=== PATIENT | male | born 1995 | race African-American/Black ===

== ENCOUNTER 2020-03-03 00:15 | Emergency (ER) | payer MEDICAID, SELFPAY ==
[2020-03-03 00:24] VITALS: BP 147/88; PULSE 74; RESP 17; O2SAT 96; BMI 22.4
[2020-03-03 01:48] LABS: Hemoglobin 14.2 g/dl (14.0-18.0); PLT CLUMP 1; WBC ABN SCTR FOR CBC 1
[2020-03-03 01:50] LABS: Hematocrit 40.5 % (42-52); Mean Corpuscular HGB Conc 35.1 g/dl (31.0-36.0); Mean Corpuscular Hemoglobin 25.8 pg (27.0-33.0); Mean Corpuscular Volume 73.6 fL (80-98); Platelet Count 277 X10*3/uL (160-400)
--- NOTE | 2020-03-03 02:05 | ED_ITS ---
HPI - Altered Mental Status General Chief Complaint: Altered Mental Status Stated Complaint: Psychiatric Episode Time Seen by Provider: 03/03/20 00:56 Source: EMS Limitations: altered mental status History of Present Illness HPI narrative: 24-year-old male brought in for altered mental status. Unable to obtain full history from patient secondary to altered mental status. History as per EMS stating that he was at home with his family and was acting strange. Locked himself in a room 911 was called. Patient with a history marijuana use however no drug abuse no other history obtainable at this time Related Data Allergies Allergy/AdvReac Type Severity Reaction Status Date / Time Unable to Assess Allergy Verified 03/03/20 01:01 Review of Systems Review of Systems: Yes Unobtainable due to mental status PMFSH Past Medical History Medical History Patient denies significant medical history Family History Family History (Updated 03/03/20 @ 02:07 by Len Cowart DO) Other Family history non-contributory Social History Social History Use of substances other than those prescribed or required for medical reasons: Yes Substance Use Type: Marijuana Advance Directives: No Advance Directives Information Provided: No Physical Exam Vital Signs: Vital Signs: Last Vital Signs Pulse 74 03/03/20 00:24 Resp 17 03/03/20 00:24 BP 147/88 H 03/03/20 00:24 Pulse Ox 96 03/03/20 00:24 Body Mass Index 22.4 Vital signs reviewed. Pulse ox 96% on room air interpreted by me as normal Appearance: Alert. Disoriented. No acute distress. Following simple commands Eyes: Pupils equal, round and reactive to light. ENT: Pharynx normal. Neck: Normal inspection. Neck supple. No lymph nodes noted. No crepitus CVS: Normal heart rate and rhythm. Pulses normal. Normal S1 and S2 Respiratory: No respiratory distress. Breath sounds normal. No Wheezing. No rales Abdomen: Soft and nontender. No rigidity. No distention. good BS x4 Skin: Skin warm and dry. Normal skin color. Normal skin turgor. Extremities: No lower extremity edema. Neurovascular intact to all extremities. No Lacerations. No Rash Neuro: Awake. No motor deficit. No sensory deficit. Moving all extermities. Slow mumbled speech Course Course Course Narrative: Differential diagnosis includes drug abuse. Encephalitis. Renal failure Reevaluation(s) Reevaluation #1: Patient more alert. Asking about his girlfriend. Admitted to using marijuana tonight Time: 02:08 Reevaluation #2: Further history obtained from girlfriend who states was fine at dinner last night however after dinner is when the patient started to act abnormal. Acted normal as is not finishing his sentences as well as staring off into space base however prior to dinner for the past several days the patient has not had any fevers or chills or exhibited any flu-like symptoms Time: 02:20 Time: 03:04 Additional Reevaluation(s): Patient now on phone talking to his friends saying he feels much improved. Patient alert and oriented x4 MDM - Altered Mental Status Lab Data Result diagrams: 03/03/20 01:40 03/03/20 01:40 Labs: Lab Results 03/03/20 03/03/20 03/03/20 Range/Units 01:40 01:40 01:40 WBC 14.8 H (4.8-10.8) X10*3/uL RBC 5.50 (4.60-5.80) X10*6/uL Hgb 14.2 (14.0-18.0) g/dl Hct 40.5 L (42-52) % MCV 73.6 L (80-98) fL MCH 25.8 L (27.0-33.0) pg MCHC 35.1 (31.0-36.0) g/dl RDW 13.0 (11.0-16.0) % Plt Count 277 (160-400) X10*3/uL MPV 10.0 (9.4-12.4) fL Immature Gran % (Auto) Cancelled Neut % (Auto) Cancelled Lymph % (Auto) Cancelled [place] % (Auto) Cancelled Eos % (Auto) Cancelled Baso % (Auto) Cancelled Lymph # (Auto) Cancelled [place] # (Auto) Cancelled Eos # (Auto) Cancelled Baso # (Auto) Cancelled Abs Immat Gran (auto) Cancelled Absolute Neuts (auto) Cancelled Absolute Nucleated RBC 0.000 (0.0-0.012) X10*3/uL Nucleated RBC % (auto) 0.0 (0.0-0.2) /100WBC Neutrophils % (Manual) 80 H (45-73) % Band Neutrophils % 0 L (3-5) % Lymphocytes % (Manual) 10 L (20-40) % Monocytes % (Manual) 9 (2-11) % Basophils % (Manual) 1 (0-1) % Abs Neuts (Manual) 11.8 H (2.2-7.9) X10*3/uL Lymphocytes # (Manual) 1.5 (0.6-4.8) X10*3/uL Monocytes # (Manual) 1.3 H (0.0-1.2) X10*3/uL Basophils # (Manual) 0.1 (0.0-0.3) X10*3/uL Toxic Vacuolation PRESENT Platelet Estimate NORMAL (NORMAL) Plt Morphology Comment NORMAL RBC Morphology NOTED Microcytosis 1+ Target Cells 1+ Sodium 138 (135-145) mmol/L Potassium 4.0 (3.3-5.1) mmol/l Chloride 104 (96-108) mmol/L Carbon Dioxide 22 (22-29) mmol/L Anion Gap 16 (12-20) BUN 10 (9-16) mg/dL Creatinine 1.00 (0.5-1.4) mg/dL Estim Creat Clear Calc 100.3 Estimated GFR > 60 Random Glucose 119 H (60-115) mg/dL Calcium 9.9 (8.4-10.2) mg/dL Total Bilirubin (0.0-1.0) mg/dL Direct Bilirubin (0.0-0.5) mg/dL AST (5-37) U/L ALT (0-40) U/L Alkaline Phosphatase (39-117) U/L Total Protein (6.5-8.0) g/dL Albumin (3.5-5.0) g/dL Salicylates < 5.0 L (15-30) mg/dL Urine Opiates Screen (Not Detect) Acetaminophen 1 (<30) mcg/mL Ur Barbiturates Screen (Not Detect) Ur Phencyclidine Scrn (Not Detect) Ur Amphetamines Screen (Not Detect) U Benzodiazepines Scrn (Not Detect) Urine Cocaine Screen (Not Detect) U Marijuana (THC) Screen (Not Detect) Ethyl Alcohol < 10 mg/dL 03/03/20 03/03/20 Range/Units 01:40 02:27 WBC (4.8-10.8) X10*3/uL RBC (4.60-5.80) X10*6/uL Hgb (14.0-18.0) g/dl Hct (42-52) % MCV (80-98) fL MCH (27.0-33.0) pg MCHC (31.0-36.0) g/dl RDW (11.0-16.0) % Plt Count (160-400) X10*3/uL MPV (9.4-12.4) fL Immature Gran % (Auto) Neut % (Auto) Lymph % (Auto) [place] % (Auto) Eos % (Auto) Baso % (Auto) Lymph # (Auto) [place] # (Auto) Eos # (Auto) Baso # (Auto) Abs Immat Gran (auto) Absolute Neuts (auto) Absolute Nucleated RBC (0.0-0.012) X10*3/uL Nucleated RBC % (auto) (0.0-0.2) /100WBC Neutrophils % (Manual) (45-73) % Band Neutrophils % (3-5) % Lymphocytes % (Manual) (20-40) % Monocytes % (Manual) (2-11) % Basophils % (Manual) (0-1) % Abs Neuts (Manual) (2.2-7.9) X10*3/uL Lymphocytes # (Manual) (0.6-4.8) X10*3/uL Monocytes # (Manual) (0.0-1.2) X10*3/uL Basophils # (Manual) (0.0-0.3) X10*3/uL Toxic Vacuolation Platelet Estimate (NORMAL) Plt Morphology Comment RBC Morphology Microcytosis Target Cells Sodium (135-145) mmol/L Potassium (3.3-5.1) mmol/l Chloride (96-108) mmol/L Carbon Dioxide (22-29) mmol/L Anion Gap (12-20) BUN (9-16) mg/dL Creatinine (0.5-1.4) mg/dL Estim Creat Clear Calc Estimated GFR Random Glucose (60-115) mg/dL Calcium (8.4-10.2) mg/dL Total Bilirubin 1.3 H (0.0-1.0) mg/dL Direct Bilirubin 0.5 (0.0-0.5) mg/dL AST 24 (5-37) U/L ALT 24 (0-40) U/L Alkaline Phosphatase 67 (39-117) U/L Total Protein 8.0 (6.5-8.0) g/dL Albumin 4.9 (3.5-5.0) g/dL Salicylates (15-30) mg/dL Urine Opiates Screen Not Detected (Not Detect) Acetaminophen (<30) mcg/mL Ur Barbiturates Screen Not Detected (Not Detect) Ur Phencyclidine Scrn Not Detected (Not Detect) Ur Amphetamines Screen Not Detected (Not Detect) U Benzodiazepines Scrn Not Detected (Not Detect) Urine Cocaine Screen Not Detected (Not Detect) U Marijuana (THC) Screen POSITIVE H (Not Detect) Ethyl Alcohol mg/dL Discharge Plan Discharge Clinical Impression: Substance abuse Altered mental status Qualifiers: Altered mental status type: disorientation Qualified Code(s): R41.0 - Disorientation, unspecified Patient Disposition: Home, Self-Care Instructions: Cannabis Abuse (ED) Additional Instructions: Thank you for visiting the emergency department today. If your symptoms worsen or do not resolve completely please return to the emergency department immediately or call 911. if he have any questions please call your primary care physician Referrals: [facility] [Provider Group] - 2 days
[2020-03-03 02:12] LABS: White Blood Count 14.8 X10*3/uL (4.8-10.8)
[2020-03-03 02:13] LABS: Ethanol < 10 mg/dL
[2020-03-03 02:15] LABS: Acetaminophen LAB 1 mcg/mL (<30); Alanine Aminotransferase 24 U/L (0-40); Albumin Level 4.9 g/dL (3.5-5.0); Alkaline Phosphatase 67 U/L (39-117); Anion Gap 16 (12-20); Aspartate Amino Transferase 24 U/L (5-37); Bilirubin Direct 0.5 mg/dL (0.0-0.5); Bilirubin Total 1.3 mg/dL (0.0-1.0); Blood Urea Nitrogen 10 mg/dL (9-16); Calcium 9.9 mg/dL (8.4-10.2); Carbon Dioxide 22 mmol/L (22-29); Chloride 104 mmol/L (96-108); Creatinine Clr Calc Pharmacy 100.3; Estimated Glomerular Filt Rate > 60; Glucose Random 119 mg/dL (60-115); Salicylate < 5.0 mg/dL (15-30); Sodium 138 mmol/L (135-145)
[2020-03-03 02:32] LABS: Basophils Abs Manual 0.1 X10*3/uL (0.0-0.3); Basophils Percent Manual 1 % (0-1); Lymphocytes Absolute Manual 1.5 X10*3/uL (0.6-4.8); Lymphocytes Percent Manual 10 % (20-40); Monocytes Absolute Manual 1.3 X10*3/uL (0.0-1.2); Monocytes Percent Manual 9 % (2-11); Neutrophils Percent Manual 80 % (45-73)
[2020-03-03 02:33] LABS: Microcytosis 1+; Platelet Estimate NORMAL (NORMAL); Platelet Morphology Comment NORMAL; RBC Morphology NOTED; Target Cells 1+; Toxic Vacuolation PRESENT
[2020-03-03 02:36] LABS: Band Neutrophils Percent 0 % (3-5); Neutrophils Absolute Manual 11.8 X10*3/uL (2.2-7.9)
--- NOTE | 2020-03-03 02:36 | PC.NURSE ---
venus Gordon [phone].
[2020-03-03 02:59] LABS: Amphetamine Screen Urine Not Detected (Not Detect); Barbiturates, Urine Not Detected (Not Detect); Benzodiazepines Screen Urine Not Detected (Not Detect); Cannabinoid Screen Urine POSITIVE (Not Detect); Cocaine Screen Urine Not Detected (Not Detect); Opiate Screen Urine Not Detected (Not Detect); Phencyclidine Screen Urine Not Detected (Not Detect)
== END 2020-03-03 05:53 | disposition home or self-care (01) ==
PROVIDERS: Emergency Provider Emergency Medicine
DX: R41.82 Altered mental status, unspecified (principal); F12.10 Cannabis abuse, uncomplicated
CPT/HCPCS: 36415; 80048; 80076; 80307; 80320; 85007; 85025; 85027; 99283; 99284; G0480

== ENCOUNTER 2020-03-03 06:56 | Emergency (ER) | payer MEDICAID, SELFPAY ==
[2020-03-03] VITALS (9 sets, daily range): BP systolic 108–136; BP diastolic 50–76; PULSE 55–81; RESP 14–20; TEMP 36.6–36.7; O2SAT 98–100; BMI 20.6
[2020-03-03] MEDS: Haloperidol Lactate 5 MG/ML VIAL IM (07:14)
--- NOTE | 2020-03-03 07:25 | PC.NURSE ---
pt returning to er following dc roughly 1 hr ago. per ems, pt has had increase in hallucinations following reported marijuana use, ?pcp. pt repeating short phrases and is not answering questions from this rn. pt is not combative, but unable to follow basic direction. provider at bedside for primary eval, pt to be ordered behavioral and medication restraint. 1:[address] for safety[address] see restraint flow sheet for correlating documentation.
--- NOTE | 2020-03-03 08:15 | PC.NURSE ---
pt asking to be removed from physical restraints, agreeable to rest in stretcher, appears calm and cooeprative. pt expresses he thinks he may have smoked pcp and that it was not good for him . pt placed on tele; hr in 60s appears normal sinus. basic lab work ordered at this time.
--- NOTE | 2020-03-03 08:34 | PC.NURSE ---
this rn speaking to pt mom w pt leo. pt mother concerned pt did not take drugs and is having psychological break . pt mother sts that she does not believe the pts girlfriend and family would lace weed and that the pt is not on drugs. pt mother also sts that more needs to be done because my son is gonna be a danger if he comes home . pt mother does not offer further context to why pt is a self-danger risk apart from incident prior to arrival. pt expressing he is pretty sure the weed he smoked was laced, reports regularyly smoking weed and this doesnt happen . pt cooperative w blood draw.
[2020-03-03 08:52] LABS: Basophils Percent Auto 0.3 % (0-2); Eosinophils Percent Auto 0.1 % (0-4); Hematocrit 40.3 % (42-52); Hemoglobin 14.1 g/dl (14.0-18.0); Imm Gran Abs Auto 0.04 X10*3/uL (0.00-0.03); Imm Gran Pct Auto 0.3 % (0.0-0.4); Lymphocytes Percent Auto 6.3 % (20-40); MANUAL DIFF FLAG NO; Mean Corpuscular Hemoglobin 25.9 pg (27.0-33.0); Mean Corpuscular Volume 73.9 fL (80-98); Mean Platelet Volume 9.6 fL (9.4-12.4); Monocytes Absolute Auto 1.3 X10*3/uL (0.1-1.2); Neutrophils Absolute Auto 13.5 X10*3/uL (2.0-8.3); Platelet Count 276 X10*3/uL (160-400); Red Blood Count 5.45 X10*6/uL (4.60-5.80); White Blood Count 15.8 X10*3/uL (4.8-10.8)
[2020-03-03 09:13] LABS: Ethanol < 10 mg/dL
[2020-03-03 09:17] LABS: Alanine Aminotransferase 26 U/L (0-40); Albumin Level 4.9 g/dL (3.5-5.0); Alkaline Phosphatase 66 U/L (39-117); Anion Gap 15 (12-20); Aspartate Amino Transferase 35 U/L (5-37); Bilirubin Total 1.4 mg/dL (0.0-1.0); Blood Urea Nitrogen 10 mg/dL (9-16); Calcium 9.9 mg/dL (8.4-10.2); Carbon Dioxide 24 mmol/L (22-29); Chloride 106 mmol/L (96-108); Creatinine Clr Calc Pharmacy 123.3; Estimated Glomerular Filt Rate > 60; Glucose Random 90 mg/dL (60-115); Potassium 4.1 mmol/l (3.3-5.1); Sodium 141 mmol/L (135-145)
--- NOTE | 2020-03-03 09:36 | ED_ITS ---
HPI - Psych General Chief Complaint: Psychiatric Symptoms Stated Complaint: SUBSTANCE USE, AMS Time Seen by Provider: 03/03/20 07:11 History of Present Illness HPI Narrative: 24-year-old male who was brought to the emergency department by ambulance and accompanied by police officers for evaluation of erratic behavior. The patient was seen earlier today in the emergency department around 2:00 a.m. for complaint of erratic behavior after smoking marijuana. The patient's initial emergency evaluation was unremarkable with normal blood work. The patient was observed in the emergency department and appeared to be back to his baseline was then discharged home. It is unclear what happened when the patient got home. Paramedics reported that he smoked marijuana again. The patient be lieved that the marijuana that he smoked had been ?laced with PCP ?. The patient stated that either his mother or his girlfriend laced his marijuana. Paramedics reported that the patient was very agitated at the scene and needed to be restrained by the paramedics and the police in order to be transported to the emergency department. I saw the patient immediately on presentation, the patient was in handcuffs and was very agitated. He was not answering questions appropriately but he did state that he smoked marijuana laced with PCP. The patient was taken out of handcuffs and placed in 4 point restraints in order to protect him from injuring himself. He was also chemically restrained with Haldol 5 mg IM since he did appear to be agitated. The nursing staff did speak to the patient's mother and she states that no one place the patient's drugs and that this is very unusual behavior for this patient. Related Data Allergies Allergy/AdvReac Type Severity Reaction Status Date / Time Unable to Assess Allergy Verified 03/03/20 01:01 Review of Systems Review of Systems: Yes Unobtainable due to mental condition (Altered mental status) Neurologic: Reports confusion Psychiatric: Psychiatric: Reports confusion PMFSH Past Medical History Medical History Patient denies significant medical history Family History Family History Other Family history non-contributory Social History Social History Alcohol intake: unknown Smoking Status: Unknown if ever smoked Use of substances other than those prescribed or required for medical reasons: Yes Substance Use Type: Hallucinogens Last Used Substance: Just Prior to Admission Advance Directives: No Advance Directives Information Provided: No Physical Exam Vital Signs: Vital Signs: Last Vital Signs Temp 97.9 F 03/03/20 07:12 Pulse 62 03/03/20 08:14 Resp 14 03/03/20 08:14 BP 121/60 03/03/20 08:14 Pulse Ox 98 03/03/20 07:59 Body Mass Index 20.6 Const: General: confusion and other (Agitated, patient is in handcuffs, not answer questions appropriately) Orientation/consciousness: oriented to person and confusion HENMT: Head: Yes normal to inspection and Yes normocephalic Ears: hearing grossly normal bilaterally General nose exam: Normal external nose present Face and sinus: Yes normal facial exam Mouth: Normal oral and palatal mucosa present Throat: Yes posterior oropharynx normal Eyes: General: appearance normal, both eyes and all related structures Sclerae: sclerae normal Corneas: corneas normal Pupils: Equal, round and reactive pupils present Neck: Neck: Yes normal visual inspection and Yes supple Chest: Chest palpation & inspection: normal inspection of the chest Resp: Effort & Inspection: normal respiratory effort Auscultation: clear to auscultation bilaterally Cardio: Rate: regular rate Rhythm: regular rhythm Heart sounds: S1 normal heart sound present, S2 normal heart sound present and Murmur heart sound present GI: Inspection: Yes normal to inspection and No distended Palpation (GI): Soft to palpation, nontender, no guarding and No hepatosplenomegaly present Auscultation: normal bowel sounds Skin: General skin exam: no rashes or lesions noted Neuro: General: oriented to person, confusion and other (Agitated) Cranial nerves: Yes Equal, round and reactive pupils present Cognition (Neuro): abnormal cognition Extrem: General: Yes normal to inspection, Yes full ROM and Yes capillary refill normal Psych: Appearance: well kempt Speech and movement: Psychomotor agitation in speech present Course Course Course Narrative: 24-year-old male presents to the emergency department by ambulance excluded by please for altered mental status, confusion and agitation. The patient was evaluated earlier in the emergency department around 2:00 a.m. with similar symptoms and was discharged home after improvement. There is some question of whether these symptoms per precipitated by smoking marijuana or using other drugs. Patient's initial drug screen is positive for marijuana only. On presentation to the emergency department patient was confused and agitated therefore he was placed in 4 point restraints in order to prevent him from hurting himself and he was also given the chemical restraint Haldol 5 mg IM. The patient became cooperative and we were able to take him out of restraints. He is also now sleeping most likely secondary to IM Haldol patient's laboratory evaluation did reveal an elevated white blood cell count but I suspect this is more secondary to agitation is postop infection. He did have an elevated CPK of 1289 from cyclic secondary to his agitation. I did order normal saline IV x2 L to treat this elevated CPK. Patient's kidney function is normal. I did order a CT scan of patient's brain to rule out brain pathology but I suspect that this is more likely secondary to drug use or secondary to and undiagnosed psychiatric condition. I will obtain a N psychiatric consult. I did attempt to contact family however the number that I called went to voicemail and I do not have any other numbers for family members at this time. 4:14 p.m.: The CT scan of the patient's brain did not reveal any acute abnormalities to explain the patient's symptoms. The patient is awake and lacks insight as to why he is here emergency department. She denies being suicidal homicidal. At this time, we are still waiting for a BHN and evaluation. The patient has been cooperative and did eat food without any difficulty. The patient's care will be turned over to my colleague Dr. Erica Castillo pending disposition after psychiatric evaluation. MDM - Psych Restraints Face to Face Assessment: Face to Face Assessment: Current Situation: After assessment of the patient, a review of the pertinent medical record and a discussion with nursing staff, I feel the patient requires a restrain intervention. Reaction To: [] Medical Condition: [] Behavioral State: [] Continued Need: [] Lab Data Result diagrams: 03/03/20 08:44 03/03/20 08:44 Labs: Lab Results 03/03/20 03/03/20 03/03/20 Range/Units 08:44 08:44 08:44 WBC 15.8 H (4.8-10.8) X10*3/uL RBC 5.45 (4.60-5.80) X10*6/uL Hgb 14.1 (14.0-18.0) g/dl Hct 40.3 L (42-52) % MCV 73.9 L (80-98) fL MCH 25.9 L (27.0-33.0) pg MCHC 35.0 (31.0-36.0) g/dl RDW 13.0 (11.0-16.0) % Plt Count 276 (160-400) X10*3/uL MPV 9.6 (9.4-12.4) fL Immature Gran % (Auto) 0.3 (0.0-0.4) % Neut % (Auto) 85.0 H (45-73) % Lymph % (Auto) 6.3 L (20-40) % [place] % (Auto) 8.0 (2-11) % Eos % (Auto) 0.1 (0-4) % Baso % (Auto) 0.3 (0-2) % Lymph # (Auto) 1.0 L (1.2-4.9) X10*3/uL [place] # (Auto) 1.3 H (0.1-1.2) X10*3/uL Eos # (Auto) 0.0 (0.0-0.4) X10*3/uL Baso # (Auto) 0.0 (0.0-0.2) X10*3/uL Abs Immat Gran (auto) 0.04 H (0.00-0.03) X10*3/uL Absolute Neuts (auto) 13.5 H (2.0-8.3) X10*3/uL Absolute Nucleated RBC 0.000 (0.0-0.012) X10*3/uL Nucleated RBC % (auto) 0.0 (0.0-0.2) /100WBC Sodium 141 (135-145) mmol/L Potassium 4.1 (3.3-5.1) mmol/l Chloride 106 (96-108) mmol/L Carbon Dioxide 24 (22-29) mmol/L Anion Gap 15 (12-20) BUN 10 (9-16) mg/dL Creatinine 0.89 (0.5-1.4) mg/dL Estim Creat Clear Calc 123.3 Estimated GFR > 60 Random Glucose 90 (60-115) mg/dL Calcium 9.9 (8.4-10.2) mg/dL Total Bilirubin 1.4 H (0.0-1.0) mg/dL AST 35 D (5-37) U/L ALT 26 (0-40) U/L Alkaline Phosphatase 66 (39-117) U/L Total Creatine Kinase 1289 H (38-174) U/L Total Protein 8.0 (6.5-8.0) g/dL Albumin 4.9 (3.5-5.0) g/dL Ethyl Alcohol < 10 mg/dL
[2020-03-03] MEDS: 0.9 % Sodium Chloride 1,000 ML 999 ML IVCONT ×2 (09:37)
--- NOTE | 2020-03-03 09:41 | CT_ITS ---
EXAMINATION: CT HEAD WITHOUT CONTRAST CLINICAL INFORMATION: Mental status change COMPARISON: None TECHNIQUE: Contiguous axial imaging was performed from the skull base to vertex without intravenous administration of contrast. This CT examination was performed using dose optimization techniques as appropriate, variously including the following: *Automated exposure control *Adjustment of mA and/or kV according to patient size (this includes techniques or standardized protocols for targeted exams where dose is matched to indication/reason for exam; i.e. extremities or head) *Use of iterative reconstruction technique DLP: 697 mGy-cm FINDINGS: There is no evidence of acute intracranial hemorrhage or territorial infarction. No abnormal mass effect or midline shift is seen. [place] to white matter differentiation is well preserved. No extra-axial fluid collections are identified. The ventricles are normal in size. There is no abnormal attenuation within the brain parenchyma. The osseous structures and soft tissues are normal. The mastoid air cells and visualized portions of the paranasal sinuses are well aerated. There is prominent soft tissue seen in the posterior naso-oropharynx region. CT/CT head/brain wo con IMPRESSION: Prominent soft tissue seen in the posterior naso-oropharynx. Otherwise unremarkable exam.
--- NOTE | 2020-03-03 12:05 | PC.NURSE ---
[facility] called, confirmed they have recieved pt referral.
--- NOTE | 2020-03-03 12:39 | PC.NURSE ---
pt resting in stretcher, arousable to tactile stimuli, rr even/unlabored.
--- NOTE | 2020-03-03 16:23 | MHC.CARE ---
Addendum entered by Ludivina Hatfield [facility] 03/03/20 23:11: CARE Team was misinformed by [facility], who confused this patient with another pt. Pt has not yet been seen by [facility] and CARE Team is told that pt will be seen by [facility] at 10:30PM. CARE Team calls [facility] at 11:11PM and [facility] reports that they have assigned this case to a clinician and they will be here to conduct assessment by midnight. Original Note: CARE Team reaches out to [facility] evonne and speaks with Adalberto. Pt has been seen by [facility] with disposition for inpatient level of care.
[2020-03-04] VITALS (10 sets, daily range): BP systolic 116–149; BP diastolic 58–78; PULSE 55–84; RESP 16–20; TEMP 36.4–36.9; O2SAT 97–100
--- NOTE | 2020-03-04 02:36 | PC.NURSE ---
PT CONTINUES TO WAIT FOR BHN, CONFUSION OVER WRONG ASSESSMENT BEING PUT IN PTS CHART. PREVIOUS RN REPORTED PT WAS ALREADY SEEN AND BEDSEARCH. PT WAS NOT SEEN. BHN 1ST ARRIVAL TIME WAS 2230, THEY DID NOT ARRIVE. 2ND TIME WAS 0000, 0030, FINALLY ONSITE @0130, BUT CONFUSION CONTINUED WHETHER PT NEEDED TO BE SEEN SO PEST CONTROL SUPERVISOR SAW ANOTHER PATIENT FIRST. PT CONTINUES TO WAIT TO BE SEEN. PT REMAINS A/O X 3 SPEAKS IN FULL CLEAR SENTENCES, PT HAS REMAINED IN BEHAVIORAL CONTROL THROUGHOUT THE NIGHT
[2020-03-04] MEDS: LORazepam 1 MG TABLET PO ×4 (03:44→21:22)
--- NOTE | 2020-03-04 07:39 | PC.NURSE ---
Report received from SHRUTHI Cruz. Pt resting, resp unlabored.
--- NOTE | 2020-03-04 07:52 | PC.NURSE ---
Pt's mother called, requesting information re: pt. Mother informed that pt is asleep, abd no permission has been received to speak w/ mother. Mother angry, demanding to pick son up, stating that previous female nurse did speak with her. Mother requesting to speak w/ supervisor [employer]. Nilson pradhan notified, call transferred to mother.
[2020-03-04 09:45] LABS: Hematocrit 41.3 % (42-52); Mean Corpuscular Volume 74.4 fL (80-98); Red Blood Count 5.55 X10*6/uL (4.60-5.80)
[2020-03-04 09:49] LABS: Hemoglobin 14.3 g/dl (14.0-18.0); Mean Corpuscular HGB Conc 34.6 g/dl (31.0-36.0); Mean Corpuscular Hemoglobin 25.8 pg (27.0-33.0); Platelet Count 290 X10*3/uL (160-400); Red Cell Distribution Width 12.9 % (11.0-16.0)
[2020-03-04 09:54] LABS: WBC ABN SCTR FOR CBC 1
[2020-03-04 10:14] LABS: Atypical Lymphs Percent Manual 1 % (0-6); Band Neutrophils Percent 0 % (3-5); Basophils Percent Manual 1 % (0-1); Lymphocytes Percent Manual 19 % (20-40); Monocytes Percent Manual 13 % (2-11); Neutrophils Percent Manual 66 % (45-73); RBC Morphology NOTED
[2020-03-04 10:15] LABS: Alanine Aminotransferase 29 U/L (0-40); Albumin Level 4.6 g/dL (3.5-5.0); Alkaline Phosphatase 62 U/L (39-117); Anion Gap 14 (12-20); Aspartate Amino Transferase 52 U/L (5-37); Bilirubin Direct 0.5 mg/dL (0.0-0.5); Bilirubin Total 1.3 mg/dL (0.0-1.0); Blood Urea Nitrogen 10 mg/dL (9-16); Carbon Dioxide 29 mmol/L (22-29); Chloride 101 mmol/L (96-108); Creatinine Clr Calc Pharmacy 108.7; Estimated Glomerular Filt Rate > 60; Glucose Random 91 mg/dL (60-115); Hypochromasia 2+; Microcytosis 2+; Potassium 4.5 mmol/l (3.3-5.1); Sodium 139 mmol/L (135-145); Target Cells 2+; Total Protein 7.8 g/dL (6.5-8.0)
[2020-03-04 10:17] LABS: Atypical Lymph Absolute Manual 0.1 x10*3/uL; Basophils Abs Manual 0.1 X10*3/uL (0.0-0.3); Lymphocytes Absolute Manual 2.4 X10*3/uL (0.6-4.8); Monocytes Absolute Manual 1.7 X10*3/uL (0.0-1.2); Neutrophils Absolute Manual 8.4 X10*3/uL (2.2-7.9); White Blood Count 12.7 X10*3/uL (4.8-10.8)
[2020-03-04 11:05] LABS: Platelet Estimate NORMAL (NORMAL); Platelet Morphology Comment NORMAL
--- NOTE | 2020-03-04 11:37 | PC.NURSE ---
Pt awake, affect even, ambulating on unit, no concerns reported.
[2020-03-04 12:23] LABS: Amphetamine Screen Urine Not Detected (Not Detect); Barbiturates, Urine Not Detected (Not Detect); Benzodiazepines Screen Urine Not Detected (Not Detect); Cannabinoid Screen Urine POSITIVE (Not Detect); Cocaine Screen Urine Not Detected (Not Detect); Opiate Screen Urine Not Detected (Not Detect); Phencyclidine Screen Urine Not Detected (Not Detect)
--- NOTE | 2020-03-04 14:02 | PC.NURSE ---
Pt pacing on unit slowly, aware that he has been accepted to [facility]. Pt educated re: inpatient process. Pt reports that the ativan was helpful in reducing anxiety.
[2020-03-04 15:00] LABS: COVID-19 Test Negative (Negative)
--- NOTE | 2020-03-04 15:45 | PC.NURSE ---
Reviewed labs w/ provider. Pt currently resting in room.
--- NOTE | 2020-03-04 16:03 | PC.NURSE ---
Pt transferred to main ED by battery charger tester for further treatment. Pt to receive fluids secondary to recent labs.
[2020-03-04] MEDS: 0.9 % Sodium Chloride 1,000 ML 999 ML IVCONT ×2 (16:52)
--- NOTE | 2020-03-04 16:54 | PC.NURSE ---
pt brought to [facility] to have 2l fluids. patient a&ox3 upon coming to [facility], vss, iv insterted, fluids running, vss, will continue to monitor.
--- NOTE | 2020-03-04 19:37 | PC.NURSE ---
pt ivf completed late as they infused slow, repeat labs drawn, will continue to monitor.
--- NOTE | 2020-03-04 20:38 | PC.NURSE ---
AMBULATED BACK TO POD. IV REMOVED. CALM AND COOPERATIVE. NO APPARENT DISTRESS.
[2020-03-04] MEDS: Melatonin 3 MG TABLET 6 MG PO (21:22)
--- NOTE | 2020-03-04 22:33 | PC.NURSE ---
Patient in his room quiet, requested for medication for help him sleep, provider notified/ordered Melatonin 6 mg/administered as ordered with Ativan 1 mg/pending effect. Denied distress, notified that he is not going to [facility] tonight. Will continue to monitor.
--- NOTE | 2020-03-05 02:03 | PC.NURSE ---
Patient in bed appears resting, awake, denied distress, will continue to monitor.
[2020-03-05 06:00] VITALS: BP 112/68; PULSE 72; RESP 18; TEMP 36.6; O2SAT 98
--- NOTE | 2020-03-05 06:55 | PC.NURSE ---
Report recieved. PT currently resting, breakfast at bedside, pt ambulated to bathroom with steady gait, pt denies complaints.
[2020-03-05 09:03] LABS: Glucose Urine UA NEG (NEG); Leukocyte Esterase Urine NEG (NEG); Nitrite Urine NEG (NEG); Specific Gravity - Urine >= 1.030 (1.005-1.025); Urine Blood 3+ (NEG); Urine Ketones 40 MG/DL (NEG); Urine Protein NEG (NEG-TRACE)
[2020-03-05 09:20] VITALS: BP 106/71; PULSE 60; RESP 18; TEMP 36.9; O2SAT 100
[2020-03-05 09:20] LABS: Appearance Urine CLEAR; Color Urine YELLOW
[2020-03-05 09:25] LABS: Bacteria Urine TRACE /LPF; Mucus Urine 2+ /LPF; WBC Urine 0-2 /HPF (0-4)
--- NOTE | 2020-03-05 12:06 | MHC.CARE ---
Pt was initially seen by [facility] adn found IPLOC. Pts attending provider requested CARE Team to call Pts mother to verify Pt could be discharge into her care. Pts mother in agreement for Pt to be discharged home. Per Provider Pt to be discharged. CARE Team updated N regarding changed in Pts dispostion.
== END 2020-03-05 11:52 | disposition home or self-care (01) ==
PROVIDERS: Physician Assistant Medical; Emergency Provider Emergency Medicine Emergency Medical Services
DX: R41.82 Altered mental status, unspecified (principal); F12.188 Cannabis abuse with other cannabis-induced disorder; R05 Cough; Z20.828 Contact with and (suspected) exposure to other viral communicable diseases
CPT/HCPCS: 36415; 70450; 80048; 80053; 80076; 80307; 80320; 81001; 82550; 85007; 85025; 85027; 87635; 96361; 96372; 99285

== ENCOUNTER 2020-06-15 13:10 | Outpatient (REF) | payer MEDICAID, SELFPAY | END 2020-06-15 13:11 | disposition home or self-care (01) | LOC: HO.LAB 13:10 | PROVIDERS: Visit Provider Internal Medicine | DX: Z20.822 Contact with and (suspected) exposure to COVID-19 (principal) | CPT/HCPCS: 36415; C9803; U0003; U0005 ==